=== PATIENT | female | born 1995 | race Caucasian/White ===

== ENCOUNTER 2017-09-29 05:10 | Inpatient (IN) ==
[2017-09-29] MEDS ORDERED: ACETAMINOPHEN 500 MG TABLET PO PRN ×2 (06:05→20:43)
[2017-09-29] MEDS ORDERED: CARBOPROST 250 MCG/ML INJECTION IM PRN (06:05)
[2017-09-29] MEDS ORDERED: LIDOCAINE 1% (10mg/ml) 2mL INJ PF SDV ID PRN (06:05)
[2017-09-29] MEDS ORDERED: METHYLERGONOVINE 0.2 MG/ML INJECTION IM PRN (06:05)
[2017-09-29] MEDS ORDERED: CALCIUM CARBONATE Chewable 500mg TABLET PO PRN ×2 (06:05→20:43)
[2017-09-29] MEDS ORDERED: MAG-AL + SIM ORAL LIQUID 30ml PO PRN (06:05)
[2017-09-29] MEDS: LR 1,000 ML IV PRN ×3 (06:25→17:38)
--- NOTE | 2017-09-29 09:22 | Anesthesia Preoperative Report ---
Anesthesia Epidural/Spinal Rec - Date and Time Date: 09/29/17 Preoperative Diagnosis: Procedure: Labor Epidural Plan: Epidural - Vital Signs /Para: P:0 - Medictaions & Allergies Inpatient Medications: Current Medications Acetaminophen (Tylenol) 500 - 1,000 mg PO Q4H PRN PRN Reason: Pain Al Hydroxide/Mg Hydroxide (Maalox Plus) 30 ml PO Q3H PRN PRN Reason: Indigestion Calcium Carbonate (Tums) 500 - 1,000 mg PO Q2H PRN PRN Reason: Indigestion Carboprost Tromethamine (Hemabate) 250 mcg IM O PRN PRN Reason: .Downtime Lactated Ringer's (Lactated Ringers) 1,000 mls @ 999 mls/hr IV .Q1H1M PRN Last Admin: 09/29/17 06:25 Dose: 999 mls/hr Lidocaine HCl (Xylocaine-Mpf 1% Vial) 0.2 mg ID O PRN PRN Reason: IV Start Methylergonovine Maleate (Methergine) 0.2 mg IM O PRN Misoprostol (Cytotec) 800 mcg MS ONCE PRN Allergies/Adverse Reactions: Allergies Allergy/AdvReac Type Severity Reaction Status Date / Time No Known Allergies Allergy Verified 06/17/17 10:46 - Home Medications Home Medications: Home Medications Medication Instructions Recorded Confirmed Type Pnv No.95/Ferrous Fum/Folic AC 1 tab PO DAILY 06/17/17 06/17/17 History [ Tablet] - Medical History Other History: Reports: Now - Surgical History HEENT Surgeries: Reports: Tonsillectomy (and addenoids), Other (wisdom teeth) Anesthesia Reactions: None Hx Family Anesthesia Reaction: No History of Motion Sickness: No - Social History Smoking Status: Never smoker Substance Use Type: does not use Alcohol Intake Frequency: does not drink - Pertinent Findings Lab Data: CBC and BMP 09/29/17 06:12 - Physical Exam Respiratory Exam: lungs clear Cardiovascular Exam: regular rate and rhythm, no murmur - Airway Assessment Mallampati Score: II TMD: 3 Fingerbreadths Neck Extension: good Overall Assessment: no airway concerns - ASA ASA Score: 2 - Discussion Discussion: Discussed risks/options/alternatives of anesthesia and questions answered. Patient consents. Nursing pain assessment noted. Anesthesia Discussion: spouse Attestation Statement: Prior to the delivery of any anesthetic medication, I examined the patient, developed the plan, obtained the patient's consent and discussed the risk and benefits of the procedure with the patient/guardian.
[2017-09-29] MEDS ORDERED: D5LR 500 ML IV SCH (11:20)
[2017-09-29] MEDS ORDERED: D5LR 1,000 ML IV PRN (11:39)
[2017-09-29] MEDS ORDERED: OXYTOCIN DRIP 30 UNIT/500 ML ML IV PRN (11:39)
[2017-09-29] MEDS ORDERED: DiphenhydrAMINE 50 MG/ML INJECTION IVP PRN (15:50)
[2017-09-29] MEDS ORDERED: NALOXONE 0.4 MG/ML INJECTION IVP PRN (15:50)
[2017-09-29] MEDS ORDERED: ROPIVACAINE 1% 10MG/ML INJ 200 MG, SUFentanil 50 MCG in NS 100 ML EPI PRN (15:50)
[2017-09-29] MEDS ORDERED: ONDANSETRON 4 MG/2 ML INJECTION IVP PRN ×2 (15:50→21:32)
[2017-09-29] MEDS ORDERED: CITRIC ACID/SODIUM CITRATE 30ml PO ONE (18:45)
[2017-09-29] MEDS ORDERED: CEFAZOLIN PREMIX (MC ONLY) 2 GM/50 ML BAG IV ONE (18:45)
[2017-09-29] MEDS ORDERED: FAMOTIDINE PB 20 MG/50 ML BAG IV ONE (18:45)
[2017-09-29 18:48] VITALS: BMI 25.6
[2017-09-29] MEDS ORDERED: EPHEDRINE 50mg/ml INJECTION ONE (18:54)
[2017-09-29] MEDS ORDERED: SALINE FLUSH 10ml SYRINGE ONE (18:54)
[2017-09-29] MEDS ORDERED: LIDOCAINE 2%/EPI 1:200,000 20ml SDV PF ONE (18:54)
[2017-09-29] MEDS ORDERED: PHENYLEPHRINE INJ 10 MG/ML VIAL IV ONE (18:54)
[2017-09-29] MEDS ORDERED: FentaNYL 100 MCG/2 ML INJECTION ONE (18:57)
--- NOTE | 2017-09-29 19:09 | Progress Note ---
DATE 09/29/2017 Mrs. Aguilar presented with rupture of membranes at 4:30 this morning. Since then she has really not progressed in labor. We have had some struggles with keeping her Pitocin up due to some tachysystole. There have been three episodes , however, over the course of the day of bradycardia. The first two occurred when the patient stood up. In between, heart tones were reactive and reassuring. However, this last episode just occurred down into the 90s, lasting 2 minutes without any change in activity. The patient is comfortable with epidural. Her cervix is about 2.5 cm, 70% and -2 but still quite posterior. The heart tones after this bradycardic episode rebounded to her regular baseline and are now having accelerations and are category 1. The patient, however, was quite anxious about this and has asked if we could proceed with a C -section. I had a lengthy discussion with her and her about the potential risks of versus the potential risks of proceeding with induction and she elects to proceed with a . We have called the crew. I have encouraged her to ask questions. She seems to have understanding. EFRAIN
[2017-09-29] MEDS ORDERED: MIDAZOLAM 2mg/2ml INJECTION ONE (19:44)
[2017-09-29] MEDS ORDERED: KETAMINE 500 MG/10 ML INJECTION ONE (19:47)
[2017-09-29] MEDS ORDERED: MORPHINE SULFATE PF 5mg/10ml INJ (Duramorph) ONE ×2 (20:08)
[2017-09-29] MEDS ORDERED: HYDROCORTISONE 2.5% CREAM 30gm RECTALLY PRN (20:43)
[2017-09-29] MEDS ORDERED: SIMETHICONE 80 MG CHEWABLE TABLET PO PRN (20:43)
[2017-09-29] MEDS ORDERED: DiphenhydrAMINE 25 MG CAPSULE PO PRN (20:43)
[2017-09-29] MEDS ORDERED: OXYTOCIN DRIP 30 UNIT/500 ML ML IV SCH (20:43)
[2017-09-29] MEDS: IBUPROFEN 800 MG TABLET PO SCH (21:40)
[2017-09-29] MEDS: HYDROCODONE/APAP 5mg/325mg TABLET PO PRN (22:00)
[2017-09-29] MEDS: D5LR 1,000 ML IV SCH (22:01)
[2017-09-29] MEDS: SIMETHICONE 80 MG CHEWABLE TABLET PO SCH (22:04)
[2017-09-30] MEDS: HYDROCODONE/APAP 5mg/325mg TABLET PO PRN ×5 (02:27→22:57)
[2017-09-30] MEDS: DOCUSATE CALCIUM 240 MG CAPSULE PO SCH (08:33)
[2017-09-30] MEDS: IBUPROFEN 800 MG TABLET PO SCH ×3 (08:33→23:02)
[2017-09-30] MEDS: D5LR 1,000 ML IV SCH ×2 (08:40→21:03)
--- NOTE | 2017-09-30 12:06 | Anesthesia Postoperative Note ---
- Date and Time Date: 09/30/17 Time: 12:05 - Status Patient Participated in Evaluation: Patient Participated in Person Vital Signs: Temperature 97.5 F 09/30/17 08:00 Pulse Rate 99 09/30/17 08:00 Respiratory Rate 16 09/30/17 08:00 Blood Pressure 124/74 09/30/17 08:00 Pulse Oximetry 100 09/30/17 08:00 Respiratory Function: Airway Patent Cardiovascular Function: Regular Pulse Mental Status: Alert and Oriented Pain Intensity: 0 Hydration: Taking PO Fluids Complications During Recover: None Apparent - Follow-Up Instructions Instructions: Per Surgeon
--- NOTE | 2017-09-30 14:13 | OB/GYN Progress Note ---
OB-PP Progress Note - General PPD1 Maternal Group B Strep: Negative Maternal blood type: A+ Maternal Rubella Status: Immune - Subjective Date: 09/30/17 Lochia: Minimal Pain: controlled Nausea or Vomiting Present: No - Objective Vital Signs: Last Vital Signs Temp 98.0 F 09/30/17 12:00 Pulse 94 09/30/17 12:00 Resp 18 09/30/17 12:00 BP 120/75 09/30/17 12:00 Pulse Ox 98 09/30/17 12:00 General: alert and oriented Abdomen: fundus firm, non-tender Incision: dry, dressed Extremities: non-tender Laboratory: Laboratory Results - last 24 hr 09/30/17 06:55 WBC 12.5 H D RBC 3.95 L Hgb 12.1 D Hct 35.2 L D MCV 89.1 MCH 30.6 MCHC 34.4 RDW Std Deviation 40.4 Plt Count 225 MPV 9.2 L - Assessment Assessment: SP, Primary C/S - Plan Plan: routine care
--- NOTE | 2017-09-30 14:25 | Operative Note ---
DATE OF OPERATION 09/29/2017 PREOPERATIVE DIAGNOSES Nonreassuring status remote from delivery. Premature rupture of membranes. POSTOPERATIVE DIAGNOSES Nonreassuring status remote from delivery. Premature rupture of membranes. PROCEDURE Primary low transverse section. SURGEON Brunilda Mcfadden MD GENERAL MANAGER [employer] Malik Huizar, Train Attendant ANESTHESIA Continuos epidural. GLASS SAGGER Nirav Miguel CRNA EBL 700 mL. DESCRIPTION OF PROCEDURE Ms. Aguilar was brought to the OR and placed on the OR table in the supine position with left lateral displacement. A [place] Real catheter had previously been placed to dependent drain. Her abdomen was prepped and draped in the usual sterile fashion. A Pfannenstiel skin incision was made with a sharp knife. This was carried down to fascia. Fascia was incised transversely. Fascia was then bluntly and sharply dissected free of rectus muscles. Rectus muscles were bluntly divided. Peritoneum was tented up and sharply entered. This was extended vertically. The bladder blade was inserted. The bladder was noted to be well below our area of operation. A low transverse uterine incision was made with a sharp knife. There was amniotic fluid that was tinged with meconium. The baby was delivered in the vertex LOP position with minimal difficulty. Baby was bulb suctioned on the abdomen. Cord was doubly clamped and cut and baby was given to Dr. Mustafa and her team for care. This is a liveborn female with Apgars of 8/9/9. She weighed 7 pounds,1 ounce. The placenta was then manually removed intact. It had a normal configuration and normal-appearing three-vessel cord. The uterine cavity was swept clear of membranes and was exteriorized. The myometrial incision was then reapproximated with a running locking 0-Monocryl, then imbricated with a running locking 0-Monocryl. Uterus, tubes and ovaries were noted to be grossly normal and were returned to the abdominal cavity. We then reapproximated peritoneum with a running nonlocking 2-0 Vicryl. We inspected at each level prior to closure, making sure we had good hemostasis. We then reapproximated fascia with a running nonlocking 0-Vicryl and skin edges with subcuticular style 3-0 undyed Vicryl. The wound was dressed with Steri-Strips and sterile dressing. Counts were correct postoperatively x 2. The urine remained clear and free-flowing throughout the procedure. At the time of this dictation Ms. Dawkins is in the process of being transferred to recovery. She is in stable condition. EFRAIN
[2017-09-30] MEDS: SIMETHICONE 80 MG CHEWABLE TABLET PO SCH ×3 (14:50→23:01)
[2017-10-01] MEDS: IBUPROFEN 800 MG TABLET PO SCH ×4 (00:41→19:08)
[2017-10-01] MEDS: HYDROCODONE/APAP 5mg/325mg TABLET PO PRN ×5 (03:21→21:01)
[2017-10-01] MEDS: DOCUSATE CALCIUM 240 MG CAPSULE PO SCH ×2 (07:34→10:06)
[2017-10-01] MEDS: SIMETHICONE 80 MG CHEWABLE TABLET PO SCH ×4 (10:07→21:45)
--- NOTE | 2017-10-01 12:50 | OB/GYN Progress Note ---
OB-PP Progress Note - General POD:: POD2 Maternal Group B Strep: Negative Maternal blood type: A+ Maternal Rubella Status: Immune - Subjective Date: 10/01/17 Lochia: Minimal Pain: controlled Voiding: voiding Nausea or Vomiting Present: No - Objective Vital Signs: Last Vital Signs Temp 98.6 F 10/01/17 11:33 Pulse 90 10/01/17 11:33 Resp 18 10/01/17 11:33 BP 131/87 10/01/17 11:33 Pulse Ox 100 10/01/17 11:33 Urine Output: good General: alert and oriented Abdomen: fundus firm, non-tender Incision: normal, clean Extremities: non-tender - Assessment Assessment: SP, Primary C/S - Plan Plan: routine care Expected date of discharge: 10/02/17
[2017-10-02 00:24] VITALS: O2SAT 98
[2017-10-02] MEDS: IBUPROFEN 800 MG TABLET PO SCH ×2 (03:29→06:33)
[2017-10-02 06:32] VITALS: BP 118/80; PULSE 78; RESP 18; TEMP 97.8
--- NOTE | 2017-10-02 08:05 | OB/GYN Progress Note ---
OB-PP Progress Note - General POD:: POD3 Maternal Group B Strep: Negative Maternal blood type: A+ Maternal Rubella Status: Immune - Subjective Date: 10/02/17 Lochia: Moderate Pain: controlled (Rx of [place] 5mg/325mg #30 and Ibuprofen 800mg # 40 sent home with patient to fill. ) Voiding: voiding Nausea or Vomiting Present: No - Objective Vital Signs: Last Vital Signs Temp 97.8 F 10/02/17 05:45 Pulse 78 10/02/17 05:45 Resp 18 10/02/17 05:45 BP 118/80 10/02/17 05:45 Pulse Ox 98 10/02/17 05:45 Urine Output: good General: alert and oriented Abdomen: fundus firm Incision: other (BF baby did not visualize incision. ) Extremities: non-tender - Assessment Assessment: Primary C/S - Plan Plan: routine care, discharge home
[2017-10-02] MEDS: DOCUSATE CALCIUM 240 MG CAPSULE PO SCH (08:38)
[2017-10-02] MEDS: SIMETHICONE 80 MG CHEWABLE TABLET PO SCH (08:38)
[2017-10-02] MEDS: HYDROCODONE/APAP 5mg/325mg TABLET PO PRN (08:40)
== END 2017-10-02 11:15 | disposition home or self-care (01) | DRG 766 ==
LOC: MC → OBSVTOIN 05:10 → MC 05:55
PROVIDERS: ADMIT Obstetrics & Gynecology; ATTEND Obstetrics & Gynecology